=== PATIENT | male | born 1950 | race Two or more races ===

== ENCOUNTER 2017-08-05 16:37 | Emergency (ER) | payer OTHER ==
[~2017-08-05] VITALS: Ht 167.6 cm; Wt 72.6 kg
[2017-08-05 17:02] VITALS: BP 134/74
== END 2017-08-05 17:58 | disposition home or self-care (01) ==
LOC: ER 16:38
DX: B34.9 Viral infection, unspecified (principal); E78.00 Pure hypercholesterolemia, unspecified; J45.909 Unspecified asthma, uncomplicated
CPT/HCPCS: 71045; 87804; 99285; A4606; 87400; Z7610